=== PATIENT | female | born 1945 | race Caucasian/White ===

== ENCOUNTER 2020-05-26 18:59 | Emergency (ER) | payer BC ==
[~2020-05-26] VITALS: Ht 165.1 cm; Wt 81.7 kg
[2020-05-26] MEDS ORDERED: FLEXERIL PO (19:40)
[2020-05-26] MEDS ORDERED: NORCO 5-325 TA1 EAC2 PO (19:40)
[2020-05-26 20:49] LABS: HEMATOCRIT 37.8 % (37.0-47.0); HEMOGLOBIN 12.3 gm/dL (12.0-15.0); MCH 28.6 pg (26.0-34.0); MCHC 32.5 g/dL (28.0-37.0); MCV 88.1 fL (80.0-100.0); RBC 4.28 mil/uL (4.20-5.00); RDW-CV 15.9 % (10.5-14.5); WBC 6.4 thou/uL (4.0-11.0)
[2020-05-26 20:57] LABS: CALCIUM 9.9 mg/dL (8.5-10.1); POTASSIUM 3.7 mmol/L (3.5-5.1)
[2020-05-26 21:07] LABS: ALBUMIN 3.8 g/dL (3.4-5.0); TOTAL BILIRUBIN 0.5 mg/dL (<0.1-1.0); TOTAL PROTEIN 8.1 g/dL (6.4-8.2)
[2020-05-26 22:57] VITALS: BP 142/65
== END 2020-05-26 22:59 | disposition home or self-care (01) ==
LOC: M.ERS 18:59
PROVIDERS: Emergency Medicine Emergency Medical Services
DX: M54.5 Low back pain (principal); E11.9 Type 2 diabetes mellitus without complications; Z88.0 Allergy status to penicillin; Z88.8 Allergy status to other drugs, medicaments and biological substances